=== PATIENT | female | born 1990 | race African-American/Black ===

== ENCOUNTER 2016-04-21 15:31 | Emergency (ER) | payer OTHER ==
[2016-04-21 14:20] LABS: URINE SOURCE CLEAN CATCH
[2016-04-21 14:30] LABS: URINE APPEARANCE CLEAR; URINE BILIRUBIN NEG (NEG); URINE BLOOD NEG (NEG); URINE COLOR YELLOW; URINE GLUCOSE NEG (NEG); URINE KETONE NEG (NEG); URINE LEUKOCYTE ESTERASE NEG (NEG); URINE NITRATE NEG (NEG); URINE PROTEIN NEG (NEG); URINE SPECIFIC GRAVITY 1.009 (1.003-1.035); URINE UROBILINOGEN 0.2 MG/DL (NEG)
[2016-04-21 14:35] LABS: CULTURE INDICATED? NO
[2016-04-25 22:53] LABS: CHLAMYDIA TRACH Not Detected (Not Detected); N GONOR Not Detected (Not Detected)
== END 2016-04-21 16:25 | disposition home or self-care (01) ==
LOC: CFTX 15:31
PROVIDERS: Nurse Practitioner
DX: N89.8 Other specified noninflammatory disorders of vagina (principal); R30.0 Dysuria; F17.210 Nicotine dependence, cigarettes, uncomplicated; Z90.721 Acquired absence of ovaries, unilateral
CPT/HCPCS: 81003; 84703; 87491; 87591; 87808; 87905; 99284

== ENCOUNTER 2016-09-06 18:34 | Emergency (ER) | payer SELFPAY ==
[~2016-09-06] VITALS: Ht 162.6 cm; Wt 54.4 kg
[2016-09-06 19:14] LABS: URINE SOURCE CLEAN CATCH
[2016-09-06 19:26] LABS: URINE APPEARANCE CLEAR; URINE BILIRUBIN NEG (NEG); URINE BLOOD NEG (NEG); URINE COLOR YELLOW; URINE GLUCOSE NORM (NORM); URINE KETONE NEG (NEG); URINE LEUKOCYTE ESTERASE NEG (NEG); URINE NITRATE NEG (NEG); URINE PROTEIN NEG (NEG); URINE SPECIFIC GRAVITY 1.005 (1.003-1.035); URINE UROBILINOGEN NORM (NORM)
[2016-09-06 19:29] LABS: CULTURE INDICATED? NO
[2016-09-09 08:37] LABS: CHLAMYDIA TRACH Not Detected (Not Detected); N GONOR Not Detected (Not Detected)
== END 2016-09-06 20:50 | disposition home or self-care (01) ==
LOC: CFTX 18:34 → CED 18:34 → CFTX 19:31
PROVIDERS: Nurse Practitioner; Nurse Practitioner Family
DX: N76.0 Acute vaginitis (principal); F17.210 Nicotine dependence, cigarettes, uncomplicated; Z98.890 Other specified postprocedural states
CPT/HCPCS: 81003; 84703; 87491; 87591; 87808; 87905; 96372; 96374; 99284; J0696